=== PATIENT | male | born 1970 | race Caucasian/White ===

== ENCOUNTER 2024-01-19 15:48 | Outpatient (OUT) | payer OTHER, SELFPAY ==
--- NOTE | 2024-01-19 16:10 | XR_ITS ---
The [address] [address] Patient Name: AFUA HERRERA MRN: [id number] date: 1970 Sex: M Assigned Patient Location: RAD Current Patient Location: RAD Accession/Order Number: [id number] Exam Date: 01/19/2024 16:14 Report Date: 01/19/2024 17:25 At the request of: FLORIN FERRARA Procedure: XR chest 2V EXAM: XR chest 2V HISTORY: Shortness Of Breath COMPARISON: 06/10/2019 TECHNIQUE: Upright PA and lateral chest x-ray FINDINGS: The heart is not enlarged and the vasculature is not distended. A very small amount of pleural and parenchymal scarring is seen at the left lung base. No acute infiltrate, effusion or pneumothorax is identified. The osseous structures are grossly intact. XR/XR chest 2V IMPRESSION: No acute infiltrate or evidence of cardiac decompensation. The overall appearance of the chest is essentially unchanged. Electronically authenticated by: ALEC CANALES Date: 01/19/2024 17:25
== END 2024-01-19 15:49 | disposition home or self-care (01) ==
PROVIDERS: Visit Provider Chiropractor
DX: R06.02 Shortness of breath (principal)
CPT/HCPCS: 71046